=== PATIENT | female | born 1990 | race Caucasian/White ===

== ENCOUNTER 2017-08-31 05:12 | Emergency (ER) | payer BC ==
[~2017-08-31] VITALS: Ht 175.3 cm; Wt 131.5 kg
--- OUTSIDE RECORDS SUMMARY | 2017-08-31 05:20 | XMS REPORT ---
Author Author DEIDRA Rodrigues [facility] Address Unknown Care Team Providers Care Power Sewing Machine Operator Name Role Phone DEIDRA Rodrigues Unavailable PROBLEMS Unknown Problems ALLERGIES Substance Reaction Event Type Date Status N.K.D.A. Unknown Non Drug Allergy Sep, Unknown SOCIAL HISTORY No smoking Hx information available PLAN OF CARE VITAL SIGNS Blood pressure systolic 128 mmHg 2016-10-08 Blood pressure diastolic 90 mmHg 2016-10-08 MEDICATIONS Medication Instructions Dosage Frequency Start Date End Date Duration Status Amoxicillin 500 MG Orally 4 times a day 1 capsule 6h Sep, Sep, 7 days Active RESULTS No Results PROCEDURES Procedure Date Ordered Related Diagnosis Body Site LTD ORAL EVALUATION - PROBLEM FOCUS Oct 08, 2016 IMMUNIZATIONS No Known Immunizations
--- OUTSIDE RECORDS SUMMARY | 2017-08-31 05:20 | XMS REPORT ---
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 Unknown Non Drug Allergy Sep, Unknown SOCIAL HISTORY No smoking Hx information available PLAN OF CARE Activity Details Follow Up prn Reason:noble/hygiene VITAL SIGNS Blood pressure systolic 133 mmHg 2016-10-19 Blood pressure diastolic 79 mmHg 2016-10-19 MEDICATIONS No Known Medications RESULTS No Results PROCEDURES Procedure Date Ordered Related Diagnosis Body Site LTD ORAL EVALUATION - PROBLEM FOCUS Oct 19, 2016 INTRAORL-PERIAPICAL 1 FILM [id number] Oct 19, 2016 EXTRAC ERUPTED TOOTH/EXPOSED ROOT Oct 19, 2016 IMMUNIZATIONS No Known Immunizations
--- OUTSIDE RECORDS SUMMARY | 2017-08-31 05:20 | XMS REPORT ---
Author DEIDRA Bustos [employer] Address Unknown Phone Unavailable Care Team Providers Care Nuclear Equipment Test Engineer Name Role Phone DEIDRA PATRICIO CP Unavailable Allergies, Adverse Reactions, Alerts Substance Reaction Event Type N.K.D.A. Info Not Available Non Drug Allergy Problems Problem Type Condition Code Onset Dates Condition Status Assessment Dental examination Z01.20 Active Medications Medication Code System Code Instructions Start Date End Date Status Dosage [place] [facility] [address]-98 5-325 MG Orally every 6 hrs Jul 22, 2016 Jul 26, 2016 1 tablet as needed Amoxicillin [facility] [address]-00 500 MG Orally 4 times a day b Jul 22, 2016 Jul 29, 2016 1 capsule Procedures Procedure Coding System Code Date INTRAORL-PERIAPICAL 1 FILM 73919 CPT-4 D0220 Jul 22, 2016 LTD ORAL EVALUATION - PROBLEM FOCUS CPT-4 D0140 Jul 22, 2016 Vital Signs Date/Time: Jul 22, 2016 Blood Pressure Diastolic 86 mmHg Blood Pressure Systolic 135 mmHg Results No Known Results Summary Purpose eClinical[employer] Submission
[2017-08-31] MEDS ORDERED: FAMOTIDINE 20MG/2ML IV (PEPCID) IVP ONE (05:30)
[2017-08-31] MEDS ORDERED: ONDANSETRON 4 MG/2 ML (SDV) Z0FRAN IVP ONE (05:30)
[2017-08-31 05:37] LABS: BASOPHILS # (AUTO) 0.1 10^3/uL (0.0-0.1); BASOPHILS % (AUTO) 1 % (0-10); EOSINOPHILS # (AUTO) 0.3 10^3/uL (0.0-0.3); EOSINOPHILS % (AUTO) 2 % (0-10); LYMPHOCYTES # (AUTO) 3.4 X 10^3 (1.0-4.0); LYMPHOCYTES % (AUTO) 28 % (12-44); MEAN CORPUSCULAR HEMOGLOBIN 29 PG (25-34); MEAN CORPUSCULAR HGB CONC 33 G/DL (32-36); MEAN CORPUSCULAR VOLUME 86 FL (80-99); MEAN PLATELET VOLUME 10.9 FL (7.4-10.4); MONOCYTES # (AUTO) 0.7 X 10^3 (0.0-1.0); MONOCYTES % (AUTO) 6 % (0-12); NEUTROPHILS # (AUTO) 7.5 X 10^3 (1.8-7.8); NEUTROPHILS % (AUTO) 63 % (42-75); PLATELET COUNT 328 10^3/uL (130-400); RED BLOOD COUNT 5.31 10^6/uL (4.35-5.85); RED CELL DISTRIBUTION WIDTH 13.2 % (10.0-14.5)
[2017-08-31 05:59] LABS: ALANINE AMINOTRANSFERASE 27 U/L (0-55); ALBUMIN 3.8 GM/DL (3.2-4.5); ANION GAP 12 MMOL/L (5-14); ASPARTATE AMINO TRANSFERASE 19 U/L (5-34); BILIRUBIN,TOTAL 0.4 MG/DL (0.1-1.0); BLOOD UREA NITROGEN 12 MG/DL (7-18); BUN/CREATININE RATIO 15; CALCIUM 9.3 MG/DL (8.5-10.1); CARBON DIOXIDE 22 MMOL/L (21-32); CHLORIDE 108 MMOL/L (98-107); CREATININE SERUM 0.79 MG/DL (0.60-1.30); GFR ESTIMATED > 60; GLUCOSE 98 MG/DL (70-105); LIPASE 19 U/L (8-78); POTASSIUM 4.1 MMOL/L (3.6-5.0); SODIUM 142 MMOL/L (135-145); TOTAL PROTEIN 7.6 GM/DL (6.4-8.2)
--- NOTE | 2017-08-31 06:19 | ED Abdominal Pain ---
General Chief Complaint: Abdominal/GI Problems Stated Complaint: GALLBLADDER PAIN Nursing Triage Note: PT REPORTS RUQ PAIN, N/V Sepsis Screen: No Definite Risk Source of Information: Patient, Old Records Exam Limitations: No Limitations (HUBERT BAXTER MD) History of Present Illness Time Seen By Provider: 05:18 Initial Comments This 27-year-old young lady presents to the emergency room with complaints of right upper quadrant abdominal pain and vomiting. Pain has been present for up to a month and radiates to her back. Vomiting just started this morning. It is the vomiting that prompted the ER visit. She has been seen at the [facility] clinic and a gallbladder ultrasound was ordered for September 02. She reports some subjective fevers at home. She is afebrile at present. (HUBERT BAXTER MD) Allergies and Home Medications Allergies Coded Allergies: No Known Drug Allergies (Unverified , 08/31/17) Review of Systems Constitutional: see HPI EENTM: No Symptoms Reported Respiratory: No Symptoms Reported Cardiovascular: No Symptoms Reported Gastrointestinal: See HPI Genitourinary: No Symptoms Reported Musculoskeletal: no symptoms reported Skin: no symptoms reported Psychiatric/Neurological: No Symptoms Reported Endocrine: No Symptoms Reported Hematologic/Lymphatic: No Symptoms Reported (HUBERT BAXTER MD) Past Vgspnjl-Hjbrsf-Pougls Hx Patient Social History Alcohol Use: Denies Use Recreational Drug Use: No Smoking Status: Current Everyday Smoker Type Used: Cigarettes 2nd Hand Smoke Exposure: Yes Recent Foreign Travel: No Contact w/Someone Who Travel: No Recent Infectious Disease Expo: No Recent Hopitalizations: No Physical Abuse: No Sexual Abuse: No (HUBERT BAXTER MD) Seasonal Allergies Seasonal Allergies: Yes (HUBERT BAXTER MD) Surgeries History of Surgeries: Yes Surgeries: Adenoidectomy, Tonsillectomy (HUBERT BAXTER MD) Respiratory History of Respiratory Disorde: No (HUBERT BXATER MD) Cardiovascular History of Cardiac Disorders: No (HUBERT BAXTER MD) Neurological History of Neurological Disord: No (HUBERT BAXTER MD) Reproductive System : No (HUBERT BAXTER MD) Genitourinary History of Genitourinary Disor: No (HUBERT BAXTER MD) Gastrointestinal History of Gastrointestinal Di: Yes Gastrointestinal Disorders: Gastroesophageal Reflux (HUBERT BAXTER MD) Musculoskeletal History of Musculoskeletal Dis: No (HUBERT BAXTER MD) HEENT History of HEENT Disorders: No (HUBERT BAXTER MD) Cancer History of Cancer: No (HUBERT BAXTER MD) Psychosocial History of Psychiatric Problem: No Suicide Risk Score: 0 (HUBERT BAXTER MD) Integumentary History of Skin or Integumenta: No (HUBERT BAXTER MD) Physical Exam Vital Signs VS - Last 72 Hours, by Label 08/31/17 05:20 Temp 95.9 Pulse 97 Resp 20 B/P (MAP) 150/98 (115) Pulse Ox 97 O2 Delivery Room Air (ADELA HANNA MD) Vital Signs Capillary Refill : Less Than 3 Seconds (HUBERT BAXTER MD) General Appearance: WD/WN, no apparent distress, obese HEENT: PERRL/EOMI, normal ENT inspection, pharynx normal Neck: normal inspection Respiratory: lungs clear, normal breath sounds, no respiratory distress, no accessory muscle use Cardiovascular: regular rate, rhythm, no edema, no murmur Gastrointestinal: normal bowel sounds, soft, No distended, No guarding, No rebound, tenderness (right upper quadrant) Extremities: normal inspection, no pedal edema Neurologic/Psychiatric: 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 II-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 nml as tested, no motor/sensory deficits, alert, normal mood/affect, oriented x 3 Skin: normal color, warm/dry (HUBERT BAXTER MD) Progress/Results/Core Measures Results/Orders Lab Results Laboratory Tests Test 08/31/17 05:25 Range/Units White Blood Count 12.0 H 4.3-11.0 10^3/uL Red Blood Count 5.31 4.35-5.85 10^6/uL Hemoglobin 15.2 11.5-16.0 G/DL Hematocrit 46 35-52 % Mean Corpuscular Volume 86 80-99 FL Mean Corpuscular Hemoglobin 29 25-34 PG Mean Corpuscular Hemoglobin Concent 33 32-36 G/DL Red Cell Distribution Width 13.2 10.0-14.5 % Platelet Count 328 130-400 10^3/uL Mean Platelet Volume 10.9 H 7.4-10.4 FL Neutrophils (%) (Auto) 63 42-75 % Lymphocytes (%) (Auto) 28 12-44 % Monocytes (%) (Auto) 6 0-12 % Eosinophils (%) (Auto) 2 0-10 % Basophils (%) (Auto) 1 0-10 % Neutrophils # (Auto) 7.5 1.8-7.8 X 10^3 Lymphocytes # (Auto) 3.4 1.0-4.0 X 10^3 Monocytes # (Auto) 0.7 0.0-1.0 X 10^3 Eosinophils # (Auto) 0.3 0.0-0.3 10^3/uL Basophils # (Auto) 0.1 0.0-0.1 10^3/uL Sodium Level 142 135-145 MMOL/L Potassium Level 4.1 3.6-5.0 MMOL/L Chloride Level 108 H 98-107 MMOL/L Carbon Dioxide Level 22 21-32 MMOL/L Anion Gap 12 5-14 MMOL/L Blood Urea Nitrogen 12 7-18 MG/DL Creatinine 0.79 0.60-1.30 MG/DL Estimat Glomerular Filtration Rate > 60 BUN/Creatinine Ratio 15 Glucose Level 98 70-105 MG/DL Calcium Level 9.3 8.5-10.1 MG/DL Total Bilirubin 0.4 0.1-1.0 MG/DL Aspartate Amino Transf (AST/SGOT) 19 5-34 U/L Alanine Aminotransferase (ALT/SGPT) 27 0-55 U/L Alkaline Phosphatase 78 40-136 U/L C-Reactive Protein High Sensitivity 1.47 H 0.00-0.50 MG/DL Total Protein 7.6 6.4-8.2 GM/DL Albumin 3.8 3.2-4.5 GM/DL Lipase 19 8-78 U/L Serum Test, Qualitative NEGATIVE NEGATIVE (ADELA HANNA MD) Medications Given in ED Current Medications Medications Dose Ordered Sig/Isaias Route Start Time Stop Time Status Last Admin Dose Admin Famotidine 20 mg ONCE ONCE IVP 08/31/17 05:30 08/31/17 05:31 DC 08/31/17 05:40 20 MG Ondansetron HCl 8 mg ONCE ONCE IVP 08/31/17 05:30 12/17 05:31 DC 08/31/17 05:40 8 MG (ADELA HANNA MD) Vital Signs/I&O Vital Sign - Last 12Hours 08/31/17 05:20 Temp 95.9 Pulse 97 Resp 20 B/P (MAP) 150/98 (115) Pulse Ox 97 O2 Delivery Room Air (ADELA HANNA MD) Blood Pressure Mean: 115 Progress Note : Time: 06:18 Progress Note Patient has received Pepcid and Zofran. She declines pain medications. She is noted to have mild leukocytosis of 12,000. Gallbladder ultrasound has been ordered. Care of this patient is being transitioned to Dr. Hanna at this time. (HUBERT BAXTER MD) Progress Note : Progress Note 0645: I have reexamined the patient. She does have mild right upper quadrant abdominal pain. Does admit that she's had increased reflux over the last week and has suffered from this from a long time. She states ranitidine is no longer working. Ultrasound is pending. I have reviewed the labs. 0755: Ultrasound is complete. No acute findings of the gallbladder. This may be related to ulcer type symptoms. We will initiate outpatient therapy for reflux disease and peptic ulcerative disease. She will follow-up with her doctor for recheck and further evaluation and referral to surgeon as indicated. Discharged home with return precautions. Patient verbalize understanding of instructions and agreement with plan. (ADELA HANNA MD) Diagnostic Imaging Diagonstic Imaging: Ultrasound Plain Films/CT/US/NM/MRI: abdomen Comments Preliminary read shows no acute gallbladder disease. Final read pending. (ADELA HANNA MD) Departure Impression Impression: Primary Impression: Right upper quadrant abdominal pain Additional Impression: Peptic ulcer disease Disposition: 01 HOME, SELF-CARE Condition: Stable Departure-Patient Inst. Decision time for Depature: 08:00 (ADELA HANNA MD) Referrals: PAUL RUBIO DAVID F MD (PCP/Family) Primary Care Physician Patient Instructions: Peptic Ulcers (DC), Acute Abdomen (Belly Pain), Adult (DC ) Add. Discharge Instructions: All discharge instructions reviewed with patient and/or family. Voiced understanding. You may take [id number] omeprazole 20 mg tabs 1 daily per package directions. You may purchase this [id number]. Follow-up with your doctor this week for recheck and further evaluation and further prescriptions as needed. You may also follow-up with the surgeon listed with a surgeon of your choice. You may need further evaluation including upper endoscopy (scope) for further evaluation of her stomach. You can discuss this with her doctor or the surgeon. Return for worse pain, fever, vomiting, weakness, breathing problems or other concerns as needed. Copy Copies To 1: CONSUELO WAGGONER MD, JOSHUA T MD Aug 31, 2017 06:19 ADELA HANNA MD Aug 31, 2017 08:03
[2017-08-31 08:11] VITALS: BP 150/98
--- NOTE | 2017-08-31 08:12 | Diagnostic Imaging Report ---
PROCEDURE: US Gallbladder. TECHNIQUE: Multiple real-time grayscale images were obtained over the right upper quadrant in various projections. INDICATION: Right upper quadrant pain. FINDINGS: The pancreas is largely obscured. The liver is fairly homogeneous with no focal lesion seen. It is hyperechoic and attenuates the ultrasound beam which could relate to fatty infiltration or hepatitis. Hepatopetal flow in the portal vein is seen. The gallbladder demonstrates no stones or wall thickening. No pericholecystic fluid. Sonographic Reeves sign is reportedly negative. No ascites or fluid collection in the upright abdomen. The right kidney is 10.8 CM in length with no hydronephrosis or focal lesion. IMPRESSION: Echogenic liver may which may relate to fat infiltration or hepatitis. Dictated by: Dictated on workstation # [id number]
== END 2017-08-31 08:12 | disposition home or self-care (01) ==
LOC: EDUNIT# 05:12 → ER 05:16
DX: K30 Functional dyspepsia (principal); K21.9 Gastro-esophageal reflux disease without esophagitis; F17.210 Nicotine dependence, cigarettes, uncomplicated; Z90.89 Acquired absence of other organs
CPT/HCPCS: 36415; 76705; 80053; 83690; 84703; 85025; 86141

== ENCOUNTER → 2017-09-23 | Outpatient (CLI) | payer BC ==
[~2017-09-23] MED LIST: CATHETER FLUSH 10 ML SYR IV PRN
--- NOTE | 2017-09-23 13:42 | Diagnostic Imaging Report ---
EXAMINATION: HIDA with EF measurements Indication: Abdominal pain TECHNIQUE: After the intravenous administration of 5.3 mCi of Tc 99m Choletec, imaging over the abdomen was obtained. This was followed by administration of Ensure orally to stimulate intrinsic CCK secretion, followed by continued imaging with ejection fraction measured. FINDINGS: There is homogeneous uptake in the liver with prompt bile duct and gallbladder filling seen. Bowel activity is seen at 55 minutes. Based on further imaging and gallbladder area of interest activity measurements after the administration of Ensure, the gallbladder ejection fraction is estimated at 73%. IMPRESSION: 1. Normal hepatobiliary uptake and Gallbladder filling. 2. Normal gallbladder ejection fraction. Dictated by: Dictated on workstation # [id number]
== END ==
LOC: CARD 10:00
PROVIDERS: ATTEND Internal Medicine
DX: R10.11 Right upper quadrant pain (principal)
CPT/HCPCS: 78227

== ENCOUNTER 2017-09-30 05:40 | Outpatient (CLI) | payer BC ==
[~2017-09-30] VITALS: Ht 175.3 cm; Wt 131.5 kg
[2017-09-30] MEDS ORDERED: OMEP20TA7 PO (12:50)
[2017-09-30] MEDS ORDERED: LORA10TA76 PO (12:50)
== END 2017-09-30 12:56 ==
LOC: PREOP 05:40
PROVIDERS: ATTEND Surgery
DX: Z01.818 Encounter for other preprocedural examination (principal); R10.11 Right upper quadrant pain

== ENCOUNTER 2017-10-05 13:41 | Day surgery (SDC) | payer BC ==
[~2017-10-05] VITALS: Ht 175.3 cm; Wt 131.5 kg
[~2017-10-05 13:41] MED LIST changes: -CATHETER FLUSH 10 ML SYR IV PRN; +LORA10TA76 PO; +OMEP20TA7 PO
[2017-10-05] MEDS ORDERED: LACTATED RINGERS 1,000 ML IV STA (13:46)
[2017-10-05 14:00] VITALS: BP 113/70
[2017-10-05] MEDS ORDERED: HURRICAINE EXT TUBE (BENZOCAINE) XX PRN (14:00)
[2017-10-05] MEDS ORDERED: MIDAZOLAM 2 MG/2 ML (VERSED) VIAL ONE (14:35)
[2017-10-05] MEDS ORDERED: proPOfol 200 MG/20 ML (DIPRIVAN) VIAL IV ONE ×2 (14:35→15:39)
[2017-10-05] MEDS ORDERED: HURRICAINE EXT TUBE (BENZOCAINE) ONE (14:43)
--- NOTE | 2017-10-05 15:32 | Progress Note-Pre Operative ---
Pre-Operative Progress Note H&P Reviewed The H&P was reviewed, patient examined and no changes noted. Date Seen by Provider: Oct 05, 2017 Time Seen by Provider: 15:32 Date H&P Reviewed: Oct 05, 2017 Time H&P Reviewed: 15:32 Pre-Operative Diagnosis: right upper quadrant abdominal pain. PAUL RUBIO DO Oct 05, 2017 15:32
[2017-10-05] MEDS ORDERED: fentaNYL INJECTION 100 MCG/2 ML AMP ONE (15:38)
--- NOTE | 2017-10-05 15:54 | Progress Note-Post Operative ---
Post-Operative Progess Note Surgeon (s)/Pyrometer Mechanic (s) Surgeon PAUL RUBIO DO Pyrometer Mechanic: na Pre-Operative Diagnosis right upper quadrant abdominal pain. Post-Operative Diagnosis minimal gastritis Procedure & Operative Findings Date of Procedure 10/05/17 Procedure Performed/Findings egd c biopsies Anesthesia Type per mda Estimated Blood Loss Estimated blood loss (mL): none Specimens/Packing Specimens Removed antrum, g e PAUL RUBOI DO Oct 05, 2017 15:54
--- NOTE | 2017-10-05 16:01 | Discharge Inst-Simple/Standard ---
Discharge Inst-Standard Patient Instructions/Follow Up Plan of Care/Instructions/FU: 2 weeks Dennis Activity as Tolerated: Yes Discharge Diet: Regular Diet PAUL RUBIO DO Oct 05, 2017 16:01
[2017-10-05 16:05] VITALS: BP 105/76
[2017-10-05 16:29] VITALS: BP 105/76
--- NOTE | 2017-10-06 04:20 | OPERATIVE REPORT ---
DATE OF SERVICE: 10/05/2017 PREOPERATIVE DIAGNOSIS: Right upper quadrant abdominal pain. POSTOPERATIVE DIAGNOSIS: Minimal gastritis. PROCEDURE PERFORMED: Esophagogastroduodenoscopy with biopsy. ANESTHESIA: Per [facility]. SURGEON: Paul Collins DO. ESTIMATED BLOOD LOSS: None. COMPLICATIONS: None. INDICATIONS: The patient is a 27-year-old female with right lower quadrant abdominal pain. She was recommended to have EGD after having normal gallbladder workup. She understands risks and benefits and wished to proceed with procedure. Consent was signed and on the chart. DESCRIPTION OF PROCEDURE: The patient was taken to the endoscopy suite, placed in left lateral recumbent position. Timeout was performed. Scope was inserted into the mouth, down the esophagus, stomach and into the duodenum. There were no polyps, masses or ulcerations. Scope was slowly retracted back into the stomach, which had some slightly erythematous changes consistent with minimal gastritis. Biopsy of the antrum was obtained. The scope was retroflexed noting no other pathology. Scope was returned to its normal position, slowly withdrawn back into the distal esophagus. There were no polyps, mass or ulcerations. A biopsy of the GE junction was obtained. Scope was then slowly retracted back until completely removed, noting no other pathology. RECOMMENDATIONS: The patient to continue on current medications. She will follow up in two to three weeks to discuss pathology results and see how she is doing at that time. Further recommendations pending biopsies. Job ID: [id number] DocumentID: [id number] Dictated Date: 10/05/2017 16:09:04 Drainage Engineer Date: 10/06/2017 04:19:39 Dictated By: PAUL COLLINS DO
== END 2017-10-05 16:30 | disposition home or self-care (01) ==
LOC: ENDO 13:41
PROVIDERS: ATTEND Surgery
DX: K29.70 Gastritis, unspecified, without bleeding (principal); K21.9 Gastro-esophageal reflux disease without esophagitis; J45.909 Unspecified asthma, uncomplicated; F17.210 Nicotine dependence, cigarettes, uncomplicated; E66.01 Morbid (severe) obesity due to excess calories; Z68.41 Body mass index [BMI] 40.0-44.9, adult
CPT/HCPCS: 84703

== ENCOUNTER 2018-08-27 14:25 | Emergency (ER) | payer BC, OTHER ==
[~2018-08-27] VITALS: Ht 175.3 cm; Wt 136.1 kg
--- NOTE | 2018-08-27 15:11 | ED Integumentary General ---
General Stated Complaint: L HAND PALM LAC Source: patient Exam Limitations: no limitations History of Present Illness Date Seen by Provider: Aug 27, 2018 Time Seen by Provider: 15:05 Initial Comments Patient is a 28-year-old female who presents to the emergency room with complaints of laceration to the palmar surface of her left hand. She reports that she was trying to scrape out able to have some wax in it with a butter knife when the knife slipped stabbing into her hand. She has a 1.5 cm laceration to the hand. She reports that she is not up-to-date on her tetanus vaccine. Timing/Duration: just prior to arrival Location: hands (left) Associated Symptoms: denies symptoms Allergies and Home Medications Allergies Coded Allergies: No Known Drug Allergies (Unverified , 09/30/17) Home Medications Loratadine 10 Mg Tablet, 10 MG PO DAILY, (Reported) Omeprazole 20 Mg Tablet.dr, 20 MG PO DAILY, (Reported) Patient Home Medication List Home Medication List Reviewed: Yes Review of Systems Review of Systems Constitutional: no symptoms reported, see HPI Skin: see HPI, other (laceration) All Other Systems Reviewed Negative Unless Noted: Yes Past Gmdklxr-Manfiw-Epdfay Hx Past Med/Social Hx: Reviewed Nursing Past Med/Soc Hx Patient Social History Type Used: Cigarettes 2nd Hand Smoke Exposure: Yes Recent Foreign Travel: No Contact w/Someone Who Travel: No Recent Hopitalizations: No Immunizations Up To Date Date of Influenza Vaccine: Jul 12, 2017 Seasonal Allergies Seasonal Allergies: Yes Past Medical History Surgeries: Yes Adenoidectomy, Tonsillectomy Respiratory: No Asthma, Sleep Apnea Cardiac: No Neurological: No Reproductive Disorders: No Female Reproductive Disorders: Polycystic Ovarian Dis Sexually Transmitted Disease: No HIV/AIDS: No Genitourinary: No Gastrointestinal: Yes Gastroesophageal Reflux, Chronic Diarrhea Musculoskeletal: No HEENT: No Loss of Vision: Bilateral Hearing Impairment: Denies Cancer: No Psychosocial: No Integumentary: No Adverse Reaction/Blood Tranf: No (N/A) Family Medical History Reviewed Nursing Family Hx Physical Exam Vital Signs Vital Signs - First Documented 08/27/18 15:01 Temp 98.0 Pulse 61 Resp 20 B/P (MAP) 139/98 (112) Pulse Ox 95 O2 Delivery Room Air Capillary Refill : General Appearance: WD/WN, no apparent distress Cardiovascular: normal peripheral pulses, regular rate, rhythm, no edema, no gallop, no JVD, no murmur Respiratory: chest non-tender, lungs clear, normal breath sounds, no respiratory distress, no accessory muscle use Neurologic/Psychiatric: alert, normal mood/affect, oriented x 3 Skin: normal color, warm/dry Skin Problem Location: upper extremities (left hand) Skin Problem Character: other (1.5 cm laceration to the palmar surface of the left hand see images) Procedures/Interventions Wound Location: Upper Extremities Other Wound Location Left hand palmar surface Wound Length (cm): 1.5 Wound's Depth, Shape: superficial, linear Wound Explored: clean Irrigated w/ Saline (ccs): 100 Wound Debrided: minimal Suture: Prolene Suture Size: 4-0 Progress The wound was anesthetized with approximately 2 mL of lidocaine without epinephrine. The wound was cleaned and irrigated with approximately 100 mL of normal saline. The wound was closed with 2 simple interrupted sutures of 4-0 Prolene. Triple antibiotic ointment and dressing was applied. Progress/Results/Core Measures Results/Orders My Orders Orders - JANAK HENRIQUEZ Dipht,Pertmary carmen(Acell),Tet Adult (Boostrix (08/27/18 15:15) Lidocaine 1% Inj 20 Ml (Xylocaine 1% Inj (08/27/18 15:15) Vital Signs/I&O 08/27/18 08/27/18 15:01 15:50 Temp 98.0 98.0 Pulse 61 61 Resp 20 20 B/P (MAP) 139/98 (112) 139/98 (112) Pulse Ox 95 95 O2 Delivery Room Air Departure Impression Primary Impression: Laceration Disposition: 01 HOME, SELF-CARE Condition: Stable/Unchanged Departure-Patient Inst. Decision time for Depature: 15:10 Referrals: CONUSELO WAGGONER MD (PCP/Family) Primary Care Physician Patient Instructions: Laceration Repair With Stitches (DC) Add. Discharge Instructions: Watch for signs of infection such as increased redness, swelling, pain, drainage. Tylenol and ibuprofen as directed by the bottle for pain relief. Return back to the emergency room to have the stitches removed in 7 days. Follow -up with your primary care provider as needed. Return back to the emergency room for any worsening symptoms or concerns as needed. Images Extremities-Upper 1 - Laceration JANAK HENRIQUEZ Aug 27, 2018 15:11
[2018-08-27] MEDS ORDERED: TETANUS,DIPTH,PERTUSS P/F (BOOSTRIX) 0.5 ML VIAL IM ONE (15:15)
[2018-08-27] MEDS ORDERED: LIDOCAINE 1% INJ 20 ML 20 ML VIAL INJ ONE (15:15)
[2018-08-27 15:50] VITALS: BP 139/98
--- OUTSIDE RECORDS SUMMARY | 2018-08-27 16:24 | XMS REPORT ---
Author Author CONSUELO WAGGONER Organization [facility] Address [address] [place] [address] Care Team Providers Care Line Helper Name Role Phone CONSUELO WAGGONER Unavailable PROBLEMS Type Condition ICD9-CM Code RFV55-SD Code Onset Dates Condition Status SNOMED Code Problem Right upper quadrant abdominal pain R10.11 Active 924830052 Problem Gastroesophageal reflux disease, esophagitis presence not specified K21.9 Active 265285974 Problem Morbid obesity E66.01 Active 339773387 ALLERGIES No Known Allergies ENCOUNTERS Encounter Location Date Diagnosis [place] [id number] [phone] Aug, Right upper quadrant pain R10.11 [facility] [address] [phone] Aug, Right upper quadrant abdominal pain R10.[address] [address] Aug, Right upper quadrant abdominal pain R10.11 ; Gastroesophageal reflux disease, esophagitis presence not specified K21.9 ; BMI 40.0-44.9, adult Z68.41 and Morbid obesity E66.01 [facility] [id number] [place] [id number] Sep, Dental examination Z01.20 and Dental caries K02.9 [facility] [id number] [place] [phone] Sep, Dental examination Z01.20 [facility] [id number] [place] [phone] Jun, Dental examination Z01.20 IMMUNIZATIONS No Known Immunizations SOCIAL HISTORY Never Assessed REASON FOR VISIT Pain (acute) side / heart burn- RUQ pain for several months worse after eating, heart burn has gotten worse in the last several month, still has alma Hook RN PLAN OF CARE Activity Details Follow Up Will call after studies Reason: VITAL SIGNS Height 69 in 2017-08-30 Weight 293 lbs 2017-08-30 Temperature 98.7 degrees Fahrenheit 2017-08-30 Heart Rate 98 bpm 2017-08-30 Respiratory Rate 22 2017-08-30 BMI 43.26 kg/m2 2017-08-30 Blood pressure systolic 142 mmHg 2017-08-30 Blood pressure diastolic 88 mmHg 2017-08-30 MEDICATIONS Medication Instructions Dosage Frequency Start Date End Date Duration Status Omeprazole 20 mg Orally Once a day, ac 1 capsule Aug, 30 day( s) Active Ranitidine Acid Pan Cleaner 75 MG Orally Once a day 2 tablet as needed 24h Active Zyrtec Allergy 10 MG Orally Once a day 1 tablet 24h Active RESULTS No Results PROCEDURES Procedure Date Ordered Result Body Site COMPLETE CBC W/AUTO DIFF WBC Aug 30, 2017 COMPREHEN METABOLIC PANEL Aug 30, 2017 VENIPUNCT, ROUTINE* Aug 30, 2017 INSTRUCTIONS MEDICATIONS ADMINISTERED No Known Medications MEDICAL (GENERAL) HISTORY Type Description Date Medical History asthma Surgical History tonsils/adnoids 2004 Hospitalization History Phnemonia as a child
--- OUTSIDE RECORDS SUMMARY | 2018-08-27 16:24 | XMS REPORT ---
Author Author CONSUELO WAGGONER Organization [facility] Address [address] [place] [address] Care Team Providers Care Solid State Tester Name Role Phone CONSUELO WAGGONER Unavailable PROBLEMS Type Condition ICD9-CM Code NWE06-MR Code Onset Dates Condition Status SNOMED Code Problem Right upper quadrant abdominal pain R10.11 Active 980662638 Problem Gastroesophageal reflux disease, esophagitis presence not specified K21.9 Active 461090632 Problem Morbid obesity E66.01 Active 289687469 ALLERGIES No Known Allergies ENCOUNTERS Encounter Location Date Diagnosis [place] [address] [id number] [place] [phone] Aug, Right upper quadrant pain R10.11 [facility] [id number] [place] [phone] Aug, Right upper quadrant abdominal pain R10.[address] [address] Aug, Right upper quadrant abdominal pain R10.11 ; Gastroesophageal reflux disease, esophagitis presence not specified K21.9 ; BMI 40.0-44.9, adult Z68.41 and Morbid obesity E66.01 [facility] [id number] [place] [phone] Sep, Dental examination Z01.20 and Dental caries K02.9 [facility] [id number] [place] [id number] Sep, Dental examination Z01.20 [facility] [id number] [place] [phone] Jun, Dental examination Z01.20 IMMUNIZATIONS No Known Immunizations SOCIAL HISTORY Never Assessed REASON FOR VISIT VIA C ER f/u / est care, PT was seen in the ER on Sep 07 with Galbladder pain- [place] [facility] PLAN OF CARE Activity Details Follow Up Will call after test, prn Reason: VITAL SIGNS Height 69 in 2017-09-16 Weight 292.4 lbs 2017-09-16 Temperature 98.9 degrees Fahrenheit 2017-09-16 Heart Rate 84 bpm 2017-09-16 Respiratory Rate 20 2017-09-16 BMI 43.18 kg/m2 2017-09-16 Blood pressure systolic 118 mmHg 2017-09-16 Blood pressure diastolic 78 mmHg 2017-09-16 MEDICATIONS Medication Instructions Dosage Frequency Start Date End Date Duration Status Omeprazole 20 mg Orally Once a day, ac 1 capsule Aug, 30 day( s) Active Ranitidine Acid Dietary Worker 75 MG Orally Once a day 2 tablet as needed 24h Not-Taking Probiotic Active Montelukast Sodium Active RESULTS Name Result Date Reference Range HIDA Scan 2017-09-23 PROCEDURES No Known procedures INSTRUCTIONS MEDICATIONS ADMINISTERED No Known Medications MEDICAL (GENERAL) HISTORY Type Description Date Medical History asthma Surgical History tonsils/adnoids 2004 Hospitalization History Phnemonia as a child
--- OUTSIDE RECORDS SUMMARY | 2018-08-27 16:24 | XMS REPORT ---
Author Author CONSUELO WAGGONER Organization [facility] Address [address] [place] [address] Care Team Providers Care Life Skills Coordinator Name Role Phone CONSUELO WAGGONER Unavailable PROBLEMS Type Condition ICD9-CM Code DGC84-EY Code Onset Dates Condition Status SNOMED Code Problem Right upper quadrant abdominal pain R10.11 Active 143441546 Problem Gastroesophageal reflux disease, esophagitis presence not specified K21.9 Active 126256155 Problem Morbid obesity E66.01 Active 573282356 ALLERGIES No Information ENCOUNTERS Encounter Location Date Diagnosis [place] [id number] [address] Aug, Right upper quadrant pain R10.11 [facility] [address] [address] Aug, Right upper quadrant abdominal pain R10.11 [place] [address] [address] Aug, Right upper quadrant abdominal pain R10.11 ; Gastroesophageal reflux disease, esophagitis presence not specified K21.9 ; BMI 40.0-44.9, adult Z68.41 and Morbid obesity E66.01 [facility] [id number] [place] [phone] Sep, Dental examination Z01.20 and Dental caries K02.9 [facility] [id number] [place] [phone] Sep, Dental examination Z01.20 [facility] [address] [phone] Jun, Dental examination Z01.20 IMMUNIZATIONS No Known Immunizations SOCIAL HISTORY Never Assessed REASON FOR VISIT PLAN OF CARE VITAL SIGNS MEDICATIONS Unknown Medications RESULTS No Results PROCEDURES No Known procedures INSTRUCTIONS MEDICATIONS ADMINISTERED No Known Medications MEDICAL (GENERAL) HISTORY Type Description Date Medical History asthma Surgical History tonsils/adnoids 2004 Hospitalization History Phnemonia as a child
== END 2018-08-27 15:50 | disposition home or self-care (01) ==
LOC: EDUNIT# 14:25 → ER 14:26
DX: S61.412A Laceration without foreign body of left hand, initial encounter (principal); J45.909 Unspecified asthma, uncomplicated; G47.30 Sleep apnea, unspecified; K21.9 Gastro-esophageal reflux disease without esophagitis; Z87.448 Personal history of other diseases of urinary system; Z23 Encounter for immunization; Z90.89 Acquired absence of other organs; Z77.22 Contact with and (suspected) exposure to environmental tobacco smoke (acute) (chronic); W26.0XXA Contact with knife, initial encounter
CPT/HCPCS: 12041; 90471; 90715

== ENCOUNTER 2021-01-04 20:45 | Emergency (ER) | payer SELFPAY ==
[~2021-01-04] VITALS: Ht 175 cm; Wt 139.9 kg
[2021-01-04 20:54] VITALS: BP 159/106
--- NOTE | 2021-01-04 21:11 | ED Integumentary General ---
General Chief Complaint: Skin/Wound Problems Stated Complaint: RIGHT LEG INFECTIONS,SWOLLEN,HOT TO TOUCH Source: patient Exam Limitations: no limitations History of Present Illness Date Seen by Provider: Jan 04, 2021 Time Seen by Provider: 20:50 Initial Comments Playing softball a few days ago, slid into a base and now has an abrasion to the lateral aspect of the proximal right calf. No fevers or chills but she does have some increasing redness of the wound. Timing/Duration: getting worse Severity: moderate Location: extremities Associated Symptoms: denies symptoms Allergies and Home Medications Allergies Coded Allergies: No Known Drug Allergies (Unverified , 09/30/17) Home Medications Loratadine 10 Mg Tablet, 10 MG PO DAILY, (Reported) Omeprazole 20 Mg Tablet.dr, 20 MG PO DAILY, (Reported) Patient Home Medication List Home Medication List Reviewed: Yes Review of Systems Review of Systems Constitutional: see HPI EENTM: see HPI Respiratory: no symptoms reported Cardiovascular: no symptoms reported Genitourinary: no symptoms reported Musculoskeletal: no symptoms reported Skin: see HPI Psychiatric/Neurological: No Symptoms Reported Endocrine: No Symptoms Reported Past Obfdrpx-Oekond-Iyaugb Hx Patient Social History Type Used: Cigarettes 2nd Hand Smoke Exposure: Yes Recent Hopitalizations: No Immunizations Up To Date Tetanus Booster (TDap): Unknown PED Vaccines UTD: Yes Date of Influenza Vaccine: Jul 12, 2017 Seasonal Allergies Seasonal Allergies: Yes Past Medical History Surgeries: Yes Adenoidectomy, Tonsillectomy Respiratory: Yes (IN PROCESS OF GETTING DIAGNOSIS) Asthma, Sleep Apnea Cardiac: No Neurological: No Reproductive Disorders: No Female Reproductive Disorders: Polycystic Ovarian Dis Sexually Transmitted Disease: No HIV/AIDS: No Genitourinary: No Gastrointestinal: Yes Gastroesophageal Reflux, Chronic Diarrhea Musculoskeletal: No Endocrine: No HEENT: No Loss of Vision: Bilateral Hearing Impairment: Denies Cancer: No Psychosocial: No Integumentary: No Blood Disorders: No Adverse Reaction/Blood Tranf: No (N/A) Physical Exam Vital Signs Vital Signs - First Documented 01/04/21 20:54 Temp 36.0 Pulse 85 Resp 18 B/P (MAP) 159/106 (123) Pulse Ox 96 O2 Delivery Room Air Capillary Refill : General Appearance: WD/WN, no apparent distress Respiratory: no respiratory distress, no accessory muscle use Neurologic/Psychiatric: alert, normal mood/affect, oriented x 3 Skin: normal color, warm/dry Skin Problem Location: other Skin Problem Character: other (Abrasion with a moist exudate over it to the lateral aspect of the left leg. There is about 1/2 cm of erythema around the edges of this abrasion. No significant cellulitis. There is minimal cellulitis.) Procedures/Interventions Suture Size: 4-0 Progress/Results/Core Measures Results/Orders My Orders Orders - MEGHAN ORTIZ APRN Tibia/Fibula, Right, 2 Views (01/04/21 21:10) Vital Signs/I&O 01/04/21 20:54 Temp 36.0 Pulse 85 Resp 18 B/P (MAP) 159/106 (123) Pulse Ox 96 O2 Delivery Room Air Departure Impression Primary Impression: Wound infection Disposition: HOME, SELF-CARE Condition: Stable Departure-Patient Inst. Decision time for Depature: 21:17 Referrals: CONSUELO WAGGONER MD (PCP/Family) Primary Care Physician Patient Instructions: Wound Infection Add. Discharge Instructions: 1. Return to ER for any concerns. Antibiotics as directed. You can leave this open during the day as long as is going to be clean. However it would probably be best to keep it covered at night and while you are at work. Wash it and gently pat dry once or twice a day. All discharge instructions reviewed with patient and/or family. Voiced un derstanding. Scripts Cephalexin (Cephalexin) 500 Mg Tablet 500 MG PO TID, #21 TAB Prov: MEGHAN ORTIZ APRN 01/04/21 MEGHAN ORTIZ APRN Jan 04, 2021 21:11
[2021-01-04] MEDS ORDERED: CEPHALEXIN 250 MG (KEFLEX) CAP PO ONE (21:15)
[2021-01-04] MEDS ORDERED: CEPH500T PO (21:18)
--- NOTE | 2021-01-04 21:25 | Diagnostic Imaging Report ---
Indication: Right leg pain AP and lateral views of the right leg are obtained. FINDINGS: No acute fracture or dislocation is identified. No abnormal lytic or sclerotic focus is seen, and there is no radiopaque foreign body. IMPRESSION: No acute abnormality. Dictated by: Dictated on workstation # [id number]
== END 2021-01-04 21:31 | disposition home or self-care (01) ==
LOC: EDUNIT# 20:45 → ER 20:47
DX: L08.9 Local infection of the skin and subcutaneous tissue, unspecified (principal); K21.9 Gastro-esophageal reflux disease without esophagitis; Z77.22 Contact with and (suspected) exposure to environmental tobacco smoke (acute) (chronic)
CPT/HCPCS: 73590

== ENCOUNTER 2023-04-28 20:08 | Emergency (ER) | payer BC ==
[~2023-04-28] VITALS: Ht 175.2 cm; Wt 136.0 kg
[~2023-04-28 20:08] MED LIST changes: +CEPH500T PO; +OMEP20TA56 PO; -OMEP20TA7 PO
--- NOTE | 2023-04-28 21:12 | ED General ---
General Chief Complaint: Skin/Wound Problems Stated Complaint: TICK BITE/RASH ON LEFT LEG/LEFT UPPER ARM Nursing Triage Note: PT AMB TO FT3 WITH CC OF AREA OF CONCERN ON L ANKLE, L UPPER ARM AND R WRIST. PT REPORTS "RASH" ON LEG BEGAN AFTER TICK BITE X1 WEEK. PT STATES RECIEVED TATTOO ON 04/23 WHEN THE AREA OF CONCERN BEGAN ON L & R ARMS. PT A&OX4 (MARIAM DAVIS) History of Present Illness Date Seen by Provider: Apr 28, 2023 Time Seen by Provider: 21:06 Initial Comments This is a 33 year old female with a history of HTN that presents for a rash. The patient states that the rash initially started 2 weeks ago a few days after a tick bite. Patient reports a rash that is located on her left leg, left upper arm, right forearm and back. Patient describes the rash as mildly itchy, painless and spreading. The patient states that she has tried using AD ointment and antibacterial soap without relief. Patient had a tattoo completed on Wednesday on her left upper arm and the rash appeared around the tattoo. The patient states that nobody else in the family has the rash. During the conversation, the patient admits that she has also had palpitations that started on Wednesday but none since. The patient also admits to chills and recent headaches for which she took ibuprofen. The patient denies possibility of . Denies cough, dizziness, weakness, numbness, or vision changes. (MARIAM DAVIS) Initial Comments Rash started in proximity to the tick bite. 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 In addition to rash, patient has systemic symptoms including chills, headache, mild tachycardia with palpitations. (HUBERT BAXTER MD) Allergies and Home Medications Allergies Coded Allergies: No Known Drug Allergies (Unverified , 09/30/17) Patient Home Medication List Home Medication List Reviewed: Yes (HUBERT BAXTER MD) Cephalexin (Cephalexin) 500 Mg Tablet, 500 MG PO TID Prescribed by: MEGHAN ORTIZ on 01/04/212117 Doxycycline Hyclate (Doxycycline Hyclate) 100 Mg Tablet, 100 MG PO BID Prescribed by: HUBERT SUAREZ on 04/28/232151 Loratadine (Claritin) 10 Mg Tablet, 10 MG PO DAILY, (Reported) Entered as Reported by: LILY CASEY on 09/30/17 1250 Omeprazole (Omeprazole) 20 Mg Tablet.dr, 20 MG PO DAILY, (Reported) Entered as Reported by: LILY CASEY on 09/30/17 1250 Ondansetron (Ondansetron Odt) 4 Mg Tab.rapdis, 4 MG SL Q4H PRN for NAUSEA/VOMITING Prescribed by: HUBERT SUAREZ on 04/28/232205 Review of Systems Review of Systems Constitutional: chills; No dizziness, No weakness EENTM: see HPI, no symptoms reported Respiratory: No cough, No dyspnea on exertion Cardiovascular: No chest pain; palpitations Gastrointestinal: no symptoms reported Genitourinary: no symptoms reported Musculoskeletal: no symptoms reported Skin: rash (posterior left leg, left upper arm, right forearm) Immunological/Allergic: pollen allergy (MARIAM DAVIS) Past Meelmyt-Nvgpix-Xlssnu Hx Patient Social History Tobacco Use?: Yes Tobacco type used: Cigarettes Smoking Status: Current Everyday Smoker Substance use?: No Alcohol Use?: Yes Alcohol Frequency: Once in a while Pt feels they are or have been: No (MARIAM DAVIS) Immunizations Up To Date Tetanus Booster (TDap): Unknown PED Vaccines UTD: Yes First/Initial COVID19 Vaccinat: NONE Second COVID19 Vaccination Mateo: NONE Third COVID19 Vaccination Date: NONE (MARIAM DAVIS) Seasonal Allergies Seasonal Allergies: Yes (MARIAM DAVIS) Past Medical History Surgery/Hospitalization HX: HTN Surgeries: Yes Adenoidectomy, Tonsillectomy Respiratory: Yes (IN PROCESS OF GETTING DIAGNOSIS) Asthma, Sleep Apnea Cardiac: No Neurological: No Reproductive Disorders: No Female Reproductive Disorders: Polycystic Ovarian Dis Sexually Transmitted Disease: No HIV/AIDS: No Genitourinary: No Gastrointestinal: Yes Gastroesophageal Reflux, Chronic Diarrhea Musculoskeletal: No Endocrine: No HEENT: No Loss of Vision: Bilateral Hearing Impairment: Denies Cancer: No Psychosocial: No Integumentary: No Blood Disorders: No Adverse Reaction/Blood Tranf: No (N/A) (MARIAM DAVIS) Family Medical History Asthma, CAD Over 55 Years Old, Diabetes, Hypertension (MARIAM DAVIS) Physical Exam Vital Signs Vital Signs - First Documented 04/28/23 20:19 Temp 36.9 Pulse 100 Resp 18 B/P (MAP) 142/78 (99) Pulse Ox 96 O2 Delivery Room Air (HUBERT BAXTER MD) Vital Signs Capillary Refill : Less Than 3 Seconds (MARIAM DAVIS) Height, Weight, BMI Height: 5'9.00" Weight: 300lbs. 0.0oz. 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 Norm as Tested Skin: Tattoos/Piercings (recent tattoo to left upper arm), Other (petechial rash noted to posterior LLE, R forearm, Left upper arm with no swelling mild bilstering throughout rash; ) (MARIAM DAVIS) General Appearance: No Apparent Distress, Obese (HUBERT BAXTER MD) Procedures/Interventions Suture Size: 4-0 (MARIAM DAVIS) Progress/Results/Core Measures Suspected Sepsis SIRS Temperature: Pulse: 100 Respiratory Rate: 18 Laboratory Tests 04/28/23 21:10: White Blood Count 9.0 Blood Pressure 142 /78 Mean: 99 Laboratory Tests 04/28/23 21:10: Platelet Count 241 (MARIAM DAVIS) Results/Orders Lab Results Laboratory Tests Test 04/28/23 21:10 Range/Units White Blood Count 9.0 4.3-11.0 10^3/uL Red Blood Count 4.58 3.80-5.11 10^6/uL Hemoglobin 13.2 11.5-16.0 g/dL Hematocrit 39 35-52 % Mean Corpuscular Volume 85 80-99 fL Mean Corpuscular Hemoglobin 29 25-34 pg Mean Corpuscular Hemoglobin Concent 34 32-36 g/dL Red Cell Distribution Width 13.1 10.0-14.5 % Platelet Count 241 130-400 10^3/uL Mean Platelet Volume 11.0 9.0-12.2 fL Immature Granulocyte % (Auto) 0 % Neutrophils (%) (Auto) 64 42-75 % Lymphocytes (%) (Auto) 29 12-44 % Monocytes (%) (Auto) 6 0-12 % Eosinophils (%) (Auto) 1 0-10 % Basophils (%) (Auto) 0 0-10 % Neutrophils # (Auto) 5.8 1.8-7.8 10^3/uL Lymphocytes # (Auto) 2.6 1.0-4.0 10^3/uL Monocytes # (Auto) 0.5 0.0-1.0 10^3/uL Eosinophils # (Auto) 0.1 0.0-0.3 10^3/uL Basophils # (Auto) 0.0 0.0-0.1 10^3/uL Immature Granulocyte # (Auto) 0.0 0.0-0.1 10^3/uL Neutrophils % (Manual) % Sodium Level 141 135-145 MMOL/L Potassium Level 3.6 3.6-5.0 MMOL/L Chloride Level 107 98-107 MMOL/L Carbon Dioxide Level 25 21-32 MMOL/L Anion Gap 9 5-14 MMOL/L Blood Urea Nitrogen 13 7-18 MG/DL Creatinine 0.84 0.60-1.30 MG/DL Estimat Glomerular Filtration Rate 94 BUN/Creatinine Ratio 15 Glucose Level 79 70-105 MG/DL Calcium Level 9.3 8.5-10.1 MG/DL Corrected Calcium 9.3 8.5-10.1 MG/DL Total Bilirubin 0.7 0.1-1.0 MG/DL Aspartate Amino Transf (AST/SGOT) 20 5-34 U/L Alanine Aminotransferase (ALT/SGPT) 24 0-55 U/L Alkaline Phosphatase 67 40-136 U/L C-Reactive Protein High Sensitivity 1.25 H 0.00-0.50 MG/DL Total Protein 7.6 6.4-8.2 GM/DL Albumin 4.0 3.2-4.5 GM/DL Serum Test, Qualitative NEGATIVE NEGATIVE (HUBERT BAXTER MD) My Orders Orders - HUBERT BAXTER MD Cbc With Automated Diff (04/28/23 21:00) Comprehensive Metabolic Panel (04/28/23 21:00) Hs C Reactive Protein (04/28/23 21:00) Hcg,Qualitative Serum (04/28/23 21:00) Tick Panel With Lyme Eia (04/28/23 21:00) Ekg Tracing (04/28/23 21:00) Doxycycline Hyclate Tablet (Doxycycline (04/28/23 21:00) Manual Differential (04/28/23 21:10) Ondansetron Oral Dissolve Tab (Zofran (04/28/23 22:15) (HUBERT BAXTER MD) Medications Given in ED Current Medications Medications Dose Ordered Sig/Isaias Route Start Time Stop Time Status Last Admin Dose Admin Ondansetron HCl 4 mg ONCE ONCE SL 04/28/23 22:15 04/28/23 22:10 DC 04/28/23 22:09 4 MG (HUBERT BAXTER MD) Vital Signs/I&O 04/28/23 04/28/23 20:19 22:10 Temp 36.9 Pulse 100 100 Resp 18 18 B/P (MAP) 142/78 (99) 142/78 Pulse Ox 96 96 O2 Delivery Room Air Room Air (HUBERT BAXTER MD) Vital Signs/I&O Capillary Refill : Less Than 3 Seconds (MARIAM DAVIS) Blood Pressure Mean: 99 Progress Note : Time: 22:10 Progress Note Chief complaint was reviewed. WERO student and I introduced ourselves to the patient at 2027. Patient denied having any immediate needs. PA student interviewed and examined the patient. After report I also interviewed and examined the patient. Work-up was offered including basic labs and tick panel. Patient was agreeable. EKG was also obtained to evaluate her palpitations. EKG was unremarkable by my interpretation. CBC, CMP, CRP, and serum test were all unremarkable. Tick panel is pending. Empiric treatment for possible tickborne disease was provided with a dose of doxycycline. Patient had not eaten and became nauseated after doxycycline. This was treated with Zofran. Prescriptions for doxycycline and Zofran were provided. See discharge instructions for further discussion. (HUBERT BAXTER MD) ECG Initial ECG Impression Date: Apr 28, 2023 Initial ECG Impression Time: 21:15 Initial ECG Rate: 80 Initial ECG Rhythm: Normal Sinus Initial ECG Intervals: Normal Initial ECG Impression: Normal Comment NSR with not ST elevation or depression. No abnormal intervals or axis deviation. (HUBERT BAXTER MD) Departure Impression Primary Impression: Rash Additional Impressions: Acute headache Qualified Codes: R51.9 - Headache, unspecified Palpitations Disposition: 01 HOME, SELF-CARE Condition: Stable Departure-Patient Inst. Decision time for Depature: 21:50 (HUBERT BAXTER MD) Referrals: [facility] (PCP/Family) Primary Care Physician Patient Instructions: Tickborne Encephalitis, Skin Rash ED Add. Discharge Instructions: Your symptoms are suspicious for a tickborne disease. Therefore you should continue taking doxycycline until otherwise instructed. Doxycycline may cause sun sensitivity. Please avoid direct sun exposure and/or use sunscreen while on doxycycline. You may use the Zofran (ondansetron) as prescribed if you get nauseated with the doxycycline. You may use Tylenol (acetaminophen) and/or ibuprofen for pain or fever. Your EKG in the ER was unremarkable. The labs obtained in the emergency room were unremarkable. The labs testing for tick diseases should be available and resulted early next week. Please follow up with a phone call to your primary care provider to follow-up on these lab results. Alternatively, you may contact the emergency room. Return to care if you have worsening symptoms despite following these instructions. All discharge instructions reviewed with patient and/or family. Voiced understanding. Scripts Ondansetron (Ondansetron Odt) 4 Mg Tab.rapdis 4 MG SL Q4H PRN for NAUSEA/VOMITING, #10 TAB 1 Refill Prov: HUBERT BAXTER MD 04/28/23 Doxycycline Hyclate (Doxycycline Hyclate) 100 Mg Tablet 100 MG PO BID, #20 TAB 0 Refills Prov: HBUERT BAXTER MD 04/28/23 Medical Student Attestation and Attending Note: I have personally interviewed and examined this patient along with WERO Greer student. I have reviewed student documentation including history, physical, and assessments. I agree with the documentation except where otherwise noted. Exam: General: Alert, oriented, no acute distress, well developed, obese HEENT: Normocephalic and atraumatic Heart: Regular rate and rhythm without murmur Lungs: Clear to auscultation bilaterally with normal effort Neuropsych: Alert, oriented, no focal deficits Skin: Warm and dry; macular papillary rash on the medial distal lower left leg, left upper arm around the tattoo, and right forearm (HUBERT BAXTER MD) Copy Copies To 1: [facility]MARIAM CASTELLANOS Apr 28, 2023 21:12 HUBERT BAXTER MD Apr 28, 2023 21:53
[2023-04-28 21:19] LABS: BASOPHILS % (AUTO) 0 % (0-10); EOSINOPHILS # (AUTO) 0.1 10^3/uL (0.0-0.3); EOSINOPHILS % (AUTO) 1 % (0-10); HEMATOCRIT 39 % (35-52); HEMOGLOBIN 13.2 g/dL (11.5-16.0); LYMPHOCYTES # (AUTO) 2.6 10^3/uL (1.0-4.0); LYMPHOCYTES % (AUTO) 29 % (12-44); MEAN CORPUSCULAR HEMOGLOBIN 29 pg (25-34); MEAN CORPUSCULAR HGB CONC 34 g/dL (32-36); MEAN CORPUSCULAR VOLUME 85 fL (80-99); MONOCYTES # (AUTO) 0.5 10^3/uL (0.0-1.0); MONOCYTES % (AUTO) 6 % (0-12); NEUTROPHILS # (AUTO) 5.8 10^3/uL (1.8-7.8); NEUTROPHILS % (AUTO) 64 % (42-75); PLATELET COUNT 241 10^3/uL (130-400)
[2023-04-28 21:35] LABS: CALCIUM 9.3 MG/DL (8.5-10.1)
[2023-04-28 21:36] LABS: TOTAL PROTEIN 7.6 GM/DL (6.4-8.2)
[2023-04-28 21:38] LABS: BILIRUBIN,TOTAL 0.7 MG/DL (0.1-1.0)
[2023-04-28 21:39] LABS: POTASSIUM 3.6 MMOL/L (3.6-5.0)
[2023-04-28 21:40] LABS: CREATININE SERUM 0.84 MG/DL (0.60-1.30)
[2023-04-28] MEDS ORDERED: DOXY100T2 PO (21:52)
[2023-04-28] MEDS ORDERED: ONDA4TAB11 SL (22:06)
[2023-04-28 22:10] VITALS: BP 142/78
[2023-04-28] MEDS ORDERED: ONDANSETRON 4 MG (ZOFRAN) ORAL DISSOLVE TAB SL ONE (22:15)
== END 2023-04-28 22:10 | disposition home or self-care (01) ==
LOC: EDUNIT# 20:08 → ER 20:12
DX: R21 Rash and other nonspecific skin eruption (principal); R51.9 Headache, unspecified; R00.2 Palpitations; F17.210 Nicotine dependence, cigarettes, uncomplicated; Z28.310 Unvaccinated for COVID-19; Z82.49 Family history of ischemic heart disease and other diseases of the circulatory system
CPT/HCPCS: 36415; 80053; 84703; 85007; 85025; 85027; 86141; 86618; 86666; 86668; 86757; 93005